=== PATIENT | female | born 1990 | race Caucasian/White ===

== ENCOUNTER → 2020-05-09 | Outpatient (CLI) | payer OTHER | LOC: ULTRA 14:13 | PROVIDERS: ATTEND Neuromusculoskeletal Medicine & OMM | DX: E01.0 Iodine-deficiency related diffuse (endemic) goiter (principal) ==

== ENCOUNTER → 2020-12-12 | Outpatient (CLI) | payer OTHER ==
[~2020-12-12] MED LIST: LO LOESTRIN FE1 EACH PO; WELLBUTRIN SR150 MG PO; ZYRTEC10 M5 PO
== END ==
LOC: LAB 10:32
PROVIDERS: ATTEND Orthopaedic Surgery
DX: Z01.812 Encounter for preprocedural laboratory examination (principal); Z20.822 Contact with and (suspected) exposure to COVID-19

== ENCOUNTER → 2020-12-17 | Day surgery (SDC) | payer OTHER ==
[~2020-12-17] VITALS: Ht 157.5 cm; Wt 81.6 kg
[~2020-12-17] MED LIST changes: +NORCO5 PO
--- NOTE | ~2020-12-17 | O ---
[facility] [place] [address] OPERATIVE REPORT Name: SEFERINO HARPER Room #: REG [facility]..#: [id number] Admission: 12/17/20 Attend Phys: Marquis Hanks MD Discharge: Date of : 88 Report #: [id number] THIS REPORT FOR: cc: Amrik Pillai,Amrik Santiago,Marquis Glez MD ~ DATE OF SERVICE: 12/17/2020 PREOPERATIVE DIAGNOSIS: Left knee plica syndrome. POSTOPERATIVE DIAGNOSIS: Left knee plica syndrome. PROCEDURE: Left knee arthroscopy with plica excision. SURGEON: Marquis Hanks MD. CRUSHER OPERATOR: Adelaida Suarez PA-C. ANESTHESIA: LMA. TOURNIQUET TIME: 15 minutes. COMPLICATIONS: None. SPECIMENS: None. CONDITION UPON LEAVING THE OPERATING ROOM: Stable. INDICATIONS FOR PROCEDURE: The patient is a 30-year-old female who has had medial-sided left knee pain, palpable painful medial plica. MRI scan confirms a plica and showed no meniscal tear. After discussion with her, she elected for left knee arthroscopy with plica excision debridement as needed. DESCRIPTION OF PROCEDURE: Risks, benefits, alternatives, complications were discussed in detail with the patient including but not limited to risk of anesthesia, risk of damage to nerves, arteries, blood vessels, risk for infection, bleeding, risk for continued knee pain and need for reoperation. Informed consent was obtained from the patient. Left knee was appropriately marked in the preoperative holding area. IV Ancef was given for preoperative antibiotics. She was brought to the operating room and placed in the supine position on the operating room table. LMA anesthesia was induced without complication. Tourniquet was placed on the left thigh. Left lower extremity was prepped and draped in normal sterile fashion. Timeout was performed properly identifying the patient and procedure as well as the instrumentation and implants. All in the operating room were in agreement. Left lower [facility] [address] [place] [address] OPERATIVE REPORT Name: SEFERINO HARPER Room #: REG [facility].#: [id number] Admission: 12/17/20 Attend Phys: Marquis Hanks MD Discharge: Date of : 88 Report #: [id number] extremity was exsanguinated, tourniquet was inflated. Tourniquet time was 15 minutes. Standard anterolateral portal was established with 11 blade through the skin. Arthroscope was introduced into the patellofemoral compartment, diagnostic arthroscopy was undertaken. Patellofemoral compartment was visualized and found to be without pathology. Medial gutter was visualized and found to have a thickened medial plica. Medial compartment was visualized and medial portal was established under arthroscopic visualization. Probe was introduced into the medial compartment. There was noted to be an intact medial meniscus. Notch was visualized and found to have an intact anterior cruciate ligament. Lateral compartment was visualized and found to have an intact lateral meniscus. Lateral gutter was visualized and found to be without pathology. Scope was then placed back in the patellofemoral compartment and the medial plica was excised with an oscillating shaver. After this, all fluid was allowed to drain from the knee. Knee was injected with 10 mL of 0.5% Marcaine. Incision was closed with 3-0 nylon. Soft dressing of Adaptic, 4 x 4, Webril, Feliciano wrap were applied. The patient tolerated this procedure well and went to recovery room under care of anesthesia postoperatively. By: 1717 1730 Marquis Hanks MD /nt
[2020-12-17 10:55] VITALS: BP 148/77
== END | disposition home or self-care (01) ==
LOC: OR 08:48
PROVIDERS: ATTEND Orthopaedic Surgery
DX: M67.52 Plica syndrome, left knee (principal); M25.562 Pain in left knee; F32.9 Major depressive disorder, single episode, unspecified; Z98.890 Other specified postprocedural states; Z79.899 Other long term (current) drug therapy; Z88.2 Allergy status to sulfonamides
CPT/HCPCS: 50010; 50101; 50405; 56526; 57103; 57180; 62110; 62900; 70005